=== PATIENT | female | born 1970 | race African-American/Black ===

== ENCOUNTER 2024-10-31 08:27 | Emergency (ER) | payer SELFPAY ==
[~2024-10-31] VITALS: Ht 172.7 cm; Wt 122.5 kg
[2024-10-31 08:30] VITALS: PULSE 83; RESP 18; TEMP 99; O2SAT 98
[2024-10-31] MEDS ORDERED: HYDROCODON-ACE1 EA16 PO (09:07)
[2024-10-31] MEDS ORDERED: HYDROCODON-ACE1 EA10 PO (09:36)
[2024-10-31] MEDS ORDERED: HYDROCODON-ACE1 EA11 PO (12:49)
== END 2024-10-31 09:30 | disposition home or self-care (01) ==
LOC: FSED 08:31
DX: M25.59 Pain in other specified joint (principal); M32.9 Systemic lupus erythematosus, unspecified; I50.9 Heart failure, unspecified; I48.91 Unspecified atrial fibrillation; F17.210 Nicotine dependence, cigarettes, uncomplicated
CPT/HCPCS: 99283